=== PATIENT | male | born 1955 | race Caucasian/White ===

== ENCOUNTER 2016-07-20 06:29 | Day surgery (SDC) | payer MEDICARE ==
[~2016-07-20] VITALS: Ht 177.8 cm; Wt 91.6 kg
[~2016-07-20 06:29] MED LIST: ASCO500T2 PO; CEFTRIAXONE 1GM IVPB FOR OMNI 50 ML IV PRN; CHOL10003 PO; HYDR-2762 PO; IBUP-1027 PO; IPRA4AER IH; LISI-338 PO; METH-37 PO; MORP15TA PO; ONDA4TAB10 SL; SIMV40TA3 PO; TAMS0.4C2 PO; insulin pump
[2016-07-20 06:56] LABS: BILIRUBIN,URINE NEGATIVE (NEG); GLUCOSE,URINE NEGATIVE (NEG); NITRITE,URINE NEGATIVE (NEG); PH,URINE 5.5; UROBILINOGEN,URINE 0.2 mg/dL (0.2 mg/dL)
[2016-07-20] MEDS ORDERED: LIDOCAINE 1% 1 ML SYRINGE. ID PRN (07:00)
[2016-07-20] MEDS ORDERED: PROCHLORPERAZINE 10 MG/2 ML VIAL. IV PRN (07:00)
[2016-07-20] MEDS ORDERED: MORPHINE SULFATE 2 MG/ML DISP.SYRIN. IV PRN (07:00)
[2016-07-20] MEDS ORDERED: IV RINGERS,LACTATED 1000ML 1,000 ML IV SCH (07:00)
[2016-07-20] MEDS ORDERED: HYDROMORPHONE 2 MG/ML VIAL. IV PRN (07:00)
[2016-07-20] MEDS ORDERED: ONDANSETRON PF 4 MG/2 ML VIAL. IV PRN (07:00)
[2016-07-20] MEDS ORDERED: IOHEXOL 300 MG/ML 50 ML VIAL. ONE (07:00)
[2016-07-20] MEDS ORDERED: FENTANYL PF 100 MCG/2 ML VIAL. IV PRN ×2 (07:00)
[2016-07-20 07:12] LABS: BACTERIA,URINE 0 /HPF (0-FEW); PROTEIN,URINE 30 mg/dL (NEG-TRACE); RBC,URINE >40 /HPF (0-2); SQUAMOUS EPITHELIAL CELL,UR FEW /LPF
[2016-07-20] MEDS ORDERED: PROPOFOL 20 ML IV ONE (07:17)
[2016-07-20] MEDS ORDERED: SEVOFLURANE 31 TO 60 MINUTES. IH ONE (07:17)
[2016-07-20] MEDS ORDERED: LIDOCAINE 2% 100 MG/5 ML DISP.SYRIN. ONE (07:17)
[2016-07-20] MEDS ORDERED: FENTANYL PF 100 MCG/2 ML VIAL. ONE (07:17)
[2016-07-20] MEDS ORDERED: FAMOTIDINE 20 MG/2 ML VIAL ONE (07:18)
[2016-07-20] MEDS ORDERED: ONDANSETRON PF 4 MG/2 ML VIAL. ONE (07:18)
[2016-07-20] MEDS ORDERED: SIMV40TA3 PO (07:23)
[2016-07-20] MEDS ORDERED: ASPI-482 PO (07:24)
[2016-07-20] MEDS ORDERED: ASCO500T2 PO (07:26)
[2016-07-20] MEDS ORDERED: IV NORMAL SALINE 1000ML BAG 1,000 ML IV SCH (07:30)
[2016-07-20 07:48] LABS: BASO % 1 % (0-3); EOS % 4 % (0-3); HEMATOCRIT 35.9 % (39.0-53.0); HEMOGLOBIN 12.2 g/dL (13.0-17.5); LYMPH # 1.8 x10^3/uL (1.0-4.8); LYMPH % 35 % (24-48); MEAN CORPUSCULAR HEMOGLOBIN 31 pg (25-35); MEAN CORPUSCULAR HGB CONC 34 g/dL (31-37); MEAN CORPUSCULAR VOLUME 92 fL (79-100); MONO % 9 % (0-9); NEUT % 52 % (31-73); PLATELET COUNT 198 x10^3/uL (140-400); RED BLOOD COUNT 3.89 x10^6/uL (4.30-5.70); RED CELL DISTRIBUTION WIDTH 13.9 % (11.5-14.5); WHITE BLOOD COUNT 5.1 x10^3/uL (4.0-11.0)
[2016-07-20 07:53] LABS: CALCIUM 9.2 mg/dL (8.5-10.1); GFR 75.5; POTASSIUM 4.7 mmol/L (3.5-5.1)
[2016-07-20] MEDS ORDERED: MIDAZOLAM HCL 2 MG/2 ML VIAL. ONE (08:15)
[2016-07-20] MEDS ORDERED: FUROSEMIDE 40 MG/4 ML VIAL ONE (09:18)
[2016-07-20] MEDS ORDERED: KETOROLAC 30 MG/ML SYRINGE FOR OR. INJ ONE (09:42)
--- NOTE | 2016-07-20 10:01 | DISCH ---
DISCHARGE INSTRUCTIONS Condition on Discharge Condition on Discharge: Stable Activity After Discharge Activity Instructions for Disc: Activity as tolerated Driving Instructions after Dis: Do not drive today Diet after Discharge Diet after Discharge: Diabetic No Calorie Level Contacting the after DC Call your doctor for: Concerns you may have Follow-Up Follow up with: Dr Delacruz's office will schedule treatment for other calculus on Right AVERY DELACRUZ DO Jul 20, 2016 10:01
--- NOTE | 2016-07-20 10:04 | PDOC ---
BRIEF OPERATIVE NOTE Date: Jul 20, 2016 Pre-Op Diagnosis Distal left ureteral calculus Post-Op Diagnosis same Procedure Performed Cystoscopy, removal Left ureteral stent, Ureteroscopy Holmium casa lithotripsy stone extraction Surgeon Subhash Anesthesia Type: General Specimens Obtained stone fragments sent to lab for stone analysis Findings same Complications none Additional Remarks tolerated well, home AVERY DELACRUZ DO Jul 20, 2016 10:04
[2016-07-20] MEDS ORDERED: CIPR500T94 PO (10:27)
[2016-07-20] MEDS ORDERED: HYDR-2666 PO (10:27)
[2016-07-20] MEDS ORDERED: PHEN-373 PO (10:28)
[2016-07-20 10:56] VITALS: BP 156/78
--- NOTE | 2016-07-20 11:19 | OP ---
DATE OF SURGERY: 07/20/2016 PREOPERATIVE DIAGNOSIS: Distal left ureteral calculus. POSTOPERATIVE DIAGNOSIS: Distal left ureteral calculus. PROCEDURES: Cystoscopy, stent removal, ureteroscopy with holmium laser lithotripsy. SURGEON: Avery Delacruz DO ANESTHESIA: General. INDICATIONS AND JUDGMENT: This is a 61-year-old male who actually has bilateral ureteral calculi. He previously underwent bilateral ureteral stent placement. His stent on the left is distal and therefore he was candidate for ureteroscopy, holmium laser lithotripsy. The right ureteral calculus is proximal and that will be treated with shockwave lithotripsy. The patient was brought to the hospital today for ureteroscopy, holmium laser lithotripsy distal left ureteral calculus. The procedure was explained to the patient. He appeared to understand and was agreeable. DESCRIPTION OF PROCEDURE: The patient was preloaded with IV antibiotics. He was taken to the operating room and placed on the operating room table, given a general anesthetic and then placed in a dorsolithotomy position using Job stirrups because we do not have a cystoscopy table. C-arm was moved into position. Rigid cystoscopy was performed. The urethra was normal in course and caliber. Prostate was unremarkable. Scope was advanced into the bladder. The distal portion of the left ureteral stent was identified. It was grasped with grasping forceps and removed without difficulty. The distal left ureter was then balloon dilated after a 0.035 Glidewire had been placed. After the balloon dilation, I advanced the rigid Daniel ureteroscope up to the level of the calculus. Calculus was too big to remove intact, therefore I passed a laser fiber through the working channel of the ureteroscope and placed on the stone and fragmented the stone into 3 pieces using the holmium laser. Three 3 fragments were then removed from the ureter using . Some of these fragments were sent to the lab for stone analysis. All the fragments were removed. I decided not to place a postoperative ureteral stent. The patient was given 50 mg of Toradol. The instruments were removed. He tolerated the procedure well and was sent to recovery room in satisfactory condition. Plans will be to send the patient home with prescriptions for Cipro antibiotics for 3 days, hydrocodone 5 as needed for pain and generic Pyridium as needed for dysuria. He will follow up in a couple of weeks. We will schedule him for shockwave lithotripsy for his proximal right ureteral calculus. AVERY DELACRUZ DO DR: MAXIMILIANO/priya JOB#: [id number] / [id number]
[2016-07-28 16:22] LABS: CA OXALATE MONOHYDR 95 % (.); COLOR Brown (.)
== END 2016-07-20 11:27 | disposition home or self-care (01) ==
LOC: SURG 06:29
PROVIDERS: ATTEND Urology
DX: N20.1 Calculus of ureter (principal); I10 Essential (primary) hypertension; E11.9 Type 2 diabetes mellitus without complications; J45.909 Unspecified asthma, uncomplicated; Z72.89 Other problems related to lifestyle; F17.200 Nicotine dependence, unspecified, uncomplicated
CPT/HCPCS: 36415; 52353; 76000; 80048; 81001; 82365; 82947; 85027; 87086; C1726; C1769; J0690; J1885; J1940; J2250; J2405; J2704; J3010; Q9967; S0028

== ENCOUNTER → 2017-07-07 | Outpatient (CLI) | payer MEDICARE ==
[~2017-07-07] MED LIST changes: -ASCO500T2 PO; -CEFTRIAXONE 1GM IVPB FOR OMNI 50 ML IV PRN; -CHOL10003 PO; -HYDR-2762 PO; -IBUP-1027 PO; -IPRA4AER IH; +LIDOCAINE WITH 8.4% SOD BICARB 3 ML DISP.SYRIN. IJ; -LISI-338 PO; -METH-37 PO; +MIDAZOLAM HCL/PF 5 MG/5 ML VIAL.; -MORP15TA PO; -ONDA4TAB10 SL; -SIMV40TA3 PO; -TAMS0.4C2 PO; +fentaNYL PF VIAL 250 MCG/5 ML VIAL; -insulin pump
[2017-07-07 08:22] LABS: ADD MAN DIFF? NO
[2017-07-07 08:26] LABS: BASO % 1 % (0-3); EOS # 0.1 x10^3/uL (0.0-0.7); EOS % 2 % (0-3); HEMATOCRIT 41.3 % (39.0-53.0); LYMPH # 2.1 x10^3/uL (1.0-4.8); LYMPH % 46 % (24-48); MEAN CORPUSCULAR HEMOGLOBIN 32 pg (25-35); MEAN CORPUSCULAR HGB CONC 34 g/dL (31-37); MEAN CORPUSCULAR VOLUME 94 fL (79-100); MONO # 0.4 x10^3/uL (0.0-1.1); MONO % 10 % (0-9); NEUT # 1.9 x10^3uL (1.8-7.7); NEUT % 42 % (31-73); PLATELET COUNT 215 x10^3/uL (140-400); RED BLOOD COUNT 4.39 x10^6/uL (4.30-5.70); RED CELL DISTRIBUTION WIDTH 13.1 % (11.5-14.5); WHITE BLOOD COUNT 4.5 x10^3/uL (4.0-11.0)
[2017-07-07 08:51] LABS: INR 0.9 (0.8-1.1)
[2017-07-07] MEDS: fentaNYL PF VIAL 250 MCG/5 ML VIAL IV (09:44)
[2017-07-07] MEDS: MIDAZOLAM HCL/PF 5 MG/5 ML VIAL. IV (09:44)
[2017-07-07] MEDS: LIDOCAINE WITH 8.4% SOD BICARB 3 ML DISP.SYRIN. IJ (09:44)
== END | disposition home or self-care (01) ==
LOC: INTRAD 07:57
DX: D47.2 Monoclonal gammopathy (principal); I10 Essential (primary) hypertension; E11.9 Type 2 diabetes mellitus without complications; F17.200 Nicotine dependence, unspecified, uncomplicated; Z87.39 Personal history of other diseases of the musculoskeletal system and connective tissue; Z98.890 Other specified postprocedural states; Z86.39 Personal history of other endocrine, nutritional and metabolic disease; Z72.89 Other problems related to lifestyle
CPT/HCPCS: 36415; 38221; 38222; 77012; 85025; 85610; 88184; 88185; 88237; 88305; 88311; 88313; 88342; 88364; 88365; 99152; J2250; J3010